=== PATIENT | male | born 1950 | race Native Hawaiian/Other Pacific Islander ===

== ENCOUNTER 2017-01-21 10:15 | Outpatient (CLI) | payer OTHER ==
[~2017-01-21 10:15] MED LIST: AMOX875T8 PO; ASPIRIN ADULT L81 MG OR; COZAAR100 MG PO; CYCL10TA35 PO; FINA5TAB2 PO; FLOXIN OT; HYDR-2748 PO; IBUP-587 PO; IBUP800T30 PO; KETOCONAZOLE22 EX; LORA10TA3 PO; MECLIZINE25 MG PO; MORPHINE SUL15 MG PO; MS CONTIN15 MG PO; NEURONTIN800 MG PO; OMEP20CA PO; ONE DAILY MENS PO; PRAVACHOL80 MG PO; PROM25TA52 PO; TERAZOSIN5 MG PO
== END 2017-01-21 19:06 | disposition home or self-care (01) ==
LOC: RAD 10:15
DX: R14.0 Abdominal distension (gaseous) (principal); M79.671 Pain in right foot; M79.641 Pain in right hand

== ENCOUNTER 2017-01-26 10:24 | Outpatient (CLI) | payer OTHER ==
[2017-01-26 10:51] LABS: PLATELET COUNT 256 K/uL (142-355)
[2017-01-26 11:48] LABS: POTASSIUM 4.5 mmol/L (3.6-5.2); SODIUM 138 mmol/L (136-145)
== END 2017-01-26 19:03 | disposition home or self-care (01) ==
LOC: LABW 10:24
PROVIDERS: Family Medicine
DX: R14.0 Abdominal distension (gaseous) (principal); M54.5 Low back pain; E11.9 Type 2 diabetes mellitus without complications; I10 Essential (primary) hypertension; N40.0 Benign prostatic hyperplasia without lower urinary tract symptoms; E55.9 Vitamin D deficiency, unspecified
CPT/HCPCS: 36415; 80053; 80061; 81000; 82043; 82306; 82570; 83036; 83735; 84153; 84439; 84443; 84550; 85027

== ENCOUNTER 2018-06-12 09:49 | Outpatient (CLI) | payer OTHER | END 2018-06-12 19:44 | disposition home or self-care (01) | LOC: MRI 09:49 | DX: M54.12 Radiculopathy, cervical region (principal); M54.16 Radiculopathy, lumbar region ==

== ENCOUNTER 2019-10-29 08:46 | Emergency (ER) | payer OTHER ==
[~2019-10-29] VITALS: Ht 167.6 cm; Wt 74.8 kg
[2019-10-29 08:53] VITALS: TEMP 98.3
[2019-10-29 10:19] VITALS: BP 131/59
== END 2019-10-29 10:20 | disposition home or self-care (01) ==
LOC: ED 08:46
PROC: 2W3JX1Z Immobilization of Right Finger using Splint (ICD-10-PCS; principal; 2019-10-29)
DX: S60.452A Superficial foreign body of right middle finger, initial encounter (principal); W45.8XXA Other foreign body or object entering through skin, initial encounter; Y92.096 Garden or yard of other non-institutional residence as the place of occurrence of the external cause
CPT/HCPCS: 99282; 99283; J2001

== ENCOUNTER 2021-10-13 08:55 | Outpatient (CLI) | payer OTHER | END 2021-10-13 19:07 | disposition home or self-care (01) | LOC: RESP 08:55 | PROVIDERS: ATTEND Nurse Practitioner Family | DX: R94.31 Abnormal electrocardiogram [ECG] [EKG] (principal); S46.001D Unspecified injury of muscle(s) and tendon(s) of the rotator cuff of right shoulder, subsequent encounter; Y92.9 Unspecified place or not applicable; G56.02 Carpal tunnel syndrome, left upper limb | CPT/HCPCS: 95885; 95910 ==

== ENCOUNTER 2021-10-15 07:42 | Outpatient (CLI) | payer OTHER | END 2021-10-15 19:55 | disposition home or self-care (01) | LOC: NM 07:42 | PROVIDERS: ATTEND Nurse Practitioner Family | DX: R94.31 Abnormal electrocardiogram [ECG] [EKG] (principal) | CPT/HCPCS: A9500 ==

== ENCOUNTER 2022-10-21 08:28 | Observation (INO) | payer OTHER ==
[2022-10-21] VITALS (7 sets, daily range): BP systolic 102–184; BP diastolic 43–100; TEMP 98.6–98.7; Ht 167.6 cm; Wt 85.7 kg
[~2022-10-21] VITALS: Ht 167.6 cm; Wt 85.7 kg
[2022-10-21 09:08] LABS: PLATELET COUNT 248 K/uL (142-355)
[2022-10-21 09:19] LABS: POTASSIUM 4.4 mmol/L (3.6-5.2)
[2022-10-21 09:42] LABS: PARTIAL THROMBOPLASTIN TIME 27.1 SECONDS (24.5-33.6)
[2022-10-21] MEDS ORDERED: COZAAR100 MG PO (13:03)
[2022-10-21] MEDS ORDERED: TERA5CAP3 PO (13:03)
[2022-10-21] MEDS ORDERED: CARV6.25 PO (13:04)
[2022-10-21] MEDS ORDERED: UROXATRAL10 MG PO (13:04)
[2022-10-22] VITALS: BP 112/67; TEMP 98.6
[2022-10-22 04:00] VITALS: BP 127/80; TEMP 98.8
[2022-10-22 05:37] LABS: PLATELET COUNT 206 K/uL (142-355)
[2022-10-22 06:01] LABS: POTASSIUM 4.2 mmol/L (3.6-5.2)
[2022-10-22 08:18] VITALS: BP 152/75; TEMP 98.4
[2022-10-22] MEDS ORDERED: CIPRO500 MG PO (10:18)
[2022-10-22] MEDS ORDERED: METR250T19 PO (10:20)
[2022-10-22] MEDS ORDERED: HYDROCODONE BIT1 TA1 PO (10:21)
== END 2022-10-22 12:13 | disposition home or self-care (01) ==
LOC: ED 08:28 → MED/SURG 11:16
PROVIDERS: Emergency Medicine; ADMIT Internal Medicine; ATTEND Internal Medicine
DX: N40.0 Benign prostatic hyperplasia without lower urinary tract symptoms (principal); I10 Essential (primary) hypertension; F45.8 Other somatoform disorders; K57.32 Diverticulitis of large intestine without perforation or abscess without bleeding; Z79.899 Other long term (current) drug therapy; Z51.81 Encounter for therapeutic drug level monitoring
CPT/HCPCS: 36415; 80053; 81002; 85027; 85610; 85730; 93005; 96361; 96365; 96366; 96367; 96375; 99221; 99284; G0378; J0744; J2270; J2405; J3490; Q9963

== ENCOUNTER 2022-12-22 13:17 | Day surgery (SDC) | payer OTHER ==
[~2022-12-22 13:17] MED LIST changes: +CARV6.25 PO; +CIPRO500 MG PO; +HYDROCODONE BIT1 TA1 PO; +METR250T19 PO; +TERA5CAP3 PO; +UROXATRAL10 MG PO
== END 2022-12-22 17:00 | disposition home or self-care (01) ==
LOC: OR 13:17
PROVIDERS: ATTEND Internal Medicine Gastroenterology
PROC: 0DBK8ZX Excision of Ascending Colon, Via Natural or Artificial Opening Endoscopic, Diagnostic (ICD-10-PCS; principal; 2022-12-22)
DX: Z12.11 Encounter for screening for malignant neoplasm of colon (principal); D12.2 Benign neoplasm of ascending colon; K57.30 Diverticulosis of large intestine without perforation or abscess without bleeding; K64.8 Other hemorrhoids; I10 Essential (primary) hypertension
CPT/HCPCS: J2704; J7120

== ENCOUNTER 2023-02-02 10:15 | Day surgery (SDC) | payer OTHER | END 2023-02-02 12:43 | disposition home or self-care (01) | LOC: OR 10:15 | PROVIDERS: ATTEND Internal Medicine Gastroenterology | PROC: 0D748DZ Dilation of Esophagogastric Junction with Intraluminal Device, Via Natural or Artificial Opening Endoscopic (ICD-10-PCS; principal; 2023-02-02) | PROC: 0DB78ZX Excision of Stomach, Pylorus, Via Natural or Artificial Opening Endoscopic, Diagnostic (ICD-10-PCS; 2023-02-02) | DX: K20.90 Esophagitis, unspecified without bleeding (principal); K22.2 Esophageal obstruction | CPT/HCPCS: J7120 ==

== ENCOUNTER 2023-02-18 08:29 | Outpatient (CLI) | payer OTHER | END 2023-02-18 19:39 | disposition home or self-care (01) | LOC: US 08:29 | PROVIDERS: ATTEND Nurse Practitioner Family | DX: R13.19 Other dysphagia (principal) ==